=== PATIENT | male | born 1950 | race Two or more races ===

== ENCOUNTER 2021-11-30 06:08 | Day surgery (SDC) | payer OTHER ==
[~2021-11-30 06:08] MED LIST: COZAAR25 MG PO; HORIZANT600 MG PO; KETOROLAC TROMET5 ML; LEVOFLOXACIN500 MG; METRONIDAZOLE500 MG; PREDNISOLONE ACE5 ML; SULFASALAZINE500 MG
== END 2021-11-30 10:45 | disposition home or self-care (01) ==
LOC: AMB-ENDOS 06:08
PROVIDERS: ATTEND Colon & Rectal Surgery
DX: K52.89 Other specified noninfective gastroenteritis and colitis (principal); K57.30 Diverticulosis of large intestine without perforation or abscess without bleeding; Z20.822 Contact with and (suspected) exposure to COVID-19; K64.2 Third degree hemorrhoids